=== PATIENT | female | born 1950 | race Caucasian/White ===

== ENCOUNTER → 2020-01-18 10:34 | Outpatient (CLI) | payer MEDICARE, SELFPAY ==
--- NOTE | ~2020-01-18 | MM_ITS ---
EXAMINATION: MM screening kiesha BI w tori HISTORY: Screening mammogram TECHNIQUE: Craniocaudal and mediolateral oblique 3-D tomosynthesis images were obtained and synthetic 2-D images were generated. CAD analysis was submitted and interpreted. COMPARISON: Comparison to multiple prior studies sequentially, with oldest reviewed study dated 06/03. BREAST PARENCHYMAL COMPOSITION: There are scattered areas of fibroglandular density. FINDINGS: There is no evidence of suspicious mass, calcification, or architectural distortion to sugg est malignancy in either breast. There has been no suspicious interval change. IMPRESSION: 1. No mammographic evidence of malignancy. 2. Recommend routine screening mammography in one year. BI-RADS Category 1: Negative Reviewed, dictated and finalized at location A. 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
== END ==
PROVIDERS: PCP Family Medicine; Visit Provider Student in an Organized Health Care Education/Training Program
DX: Z12.31 Encounter for screening mammogram for malignant neoplasm of breast (principal)
CPT/HCPCS: 77063; 77067

== ENCOUNTER → 2020-09-09 11:11 | Outpatient (CLI) | payer MEDICARE, SELFPAY ==
--- NOTE | ~2020-09-09 | XR_ITS ---
EXAMINATION: XR shoulder LT min 2V, XR humerus LT DATE: 09/09/2020 11:50 INDICATION: Left shoulder and upper arm pain TECHNIQUE: 1. AP internally and externally rotated, AP oblique externally rotated and transscapular Y views of t he left shoulder were obtained. 2. AP and lateral views of the left humerus were obtained on overlapping proximal and distal images. COMPARISON: None FINDINGS: Normal alignment. No fracture. Polyarticular osteoarthritis, moderate severity at the left acromiocl avicular and glenohumeral joints and mild at the left elbow. Visualized portions of the left lung are clear. Soft tissues are unremarkable. 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 Reviewed, dictated and finalized at location B. IMPRESSION: Polyarticular osteoarthritis, moderate at the left shoulder and mild at the lef t elbow.
== END ==
PROVIDERS: Visit Provider Nurse Practitioner
DX: M19.012 Primary osteoarthritis, left shoulder (principal); M19.022 Primary osteoarthritis, left elbow
CPT/HCPCS: 73030; 73060

== ENCOUNTER 2021-03-14 10:06 | Outpatient (CLI) | payer MEDICARE, SELFPAY ==
--- NOTE | ~2021-03-14 | CT_ITS ---
EXAMINATION: CT lung screening DATE: 03/14/2021 10:20 INDICATION: Screening for malignant neoplasm. TECHNIQUE: Computed tomography (CT) of the chest was performed without intravenous contrast. The dose -length product was 488.83 mGy-cm. Automated exposure control and iterative reconstruction technique were employed. COMPARISON: No prior studies for comparison. FINDINGS: There is atherosclerosis of the aorta and coronary arteries. Heart size is normal. No signi ficant pleural or pericardial effusion. There are calcified granulomas of the liver and spleen. There is a 10 mm fissural nodule of the minor fissure. There is focal consolidation (part solid nodule ) m easures no pneumothorax. No endobronchial lesions. 2.7 x 1.1 cm in the lingula, most likely infectiou s/inflammatory, although underlying neoplasm not excluded. There is moderate thoracic spondylosis. IMPRESSION: 1. Lung Rads 4A: [address] chest or pet/CT examination recommended. Reviewed, dictated and finalized at location B.
== END 2021-03-14 10:07 | disposition home or self-care (01) ==
LOC: ANHIMG 10:07
PROVIDERS: PCP Family Medicine; Visit Provider Family Medicine
DX: Z12.2 Encounter for screening for malignant neoplasm of respiratory organs (principal); Z87.891 Personal history of nicotine dependence
CPT/HCPCS: 71271

== ENCOUNTER → 2021-08-11 12:48 | Outpatient (CLI) | payer MEDICARE, SELFPAY ==
--- NOTE | ~2021-08-11 | XR_ITS ---
EXAMINATION: XR hand RT min 3V INDICATION: Right hand pain TECHNIQUE: Three views of the right hand are obtained. COMPARISON: None available FINDINGS: There is moderate polyarticular osteoarthritis of multiple interphalangeal joints and at th e second metacarpophalangeal joint. No fracture is identified. The soft tissues are unremarkable. IMPRESSION: 1. Polyarticular osteoarthritis. Reviewed, dictated and finalized at location A.
== END ==
PROVIDERS: PCP Family Medicine; Visit Provider Family Medicine
DX: M19.041 Primary osteoarthritis, right hand (principal)
CPT/HCPCS: 73130

== ENCOUNTER 2021-08-21 10:29 | Outpatient (CLI) | payer MEDICARE, SELFPAY ==
--- NOTE | ~2021-08-21 | CT_ITS ---
EXAMINATION: CT diagnostic chest wo con EXAM DATE: 08/21/2021 10:52 INDICATION: R91.1 - Solitary pulmonary nodule. TECHNIQUE: Spiral CT of the chest without contrast. Axial, coronal and sagittal images of the chest were reviewed. Coronal maximum intensity pixel images of chest reviewed. The dose-length product ( DLP) for this examination was 313.44 mGy-cm. The exposure was tailored according to patient size (au to mA exposure control), and iterative reconstruction (ASIR) was used as additional dose reduction te chnique. Comparison is made to prior examination from 03/14/2021. FINDINGS: No change in the right minor fissural nodule, postinfectious. No change in the linear righ t middle lobe and lingular atelectasis. No suspicious pulmonary nodules. There are no pleural or per icardial effusions. Mild emphysema. Tracheobronchial tree is patent. There is no mediastinal, hilar or axillary lymphadenopathy. There is no pneumothorax. 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 Probable coronary arter ial stents. There are splenic and liver granulomata. There is thoracic spondylosis without osteobla stic or osteolytic lesions identified. IMPRESSION: 1. Scattered postinfectious residua. Consider returning to screening low-dose chest CT at one year's time if patient still eligible. 2. Mild emphysema. Reviewed, dictated and finalized at location .
== END 2021-08-21 10:30 | disposition home or self-care (01) ==
LOC: ANHIMG 10:31
PROVIDERS: PCP Family Medicine; Visit Provider Family Medicine
DX: R91.1 Solitary pulmonary nodule (principal); J43.9 Emphysema, unspecified
CPT/HCPCS: 71250

== ENCOUNTER → 2021-09-09 11:39 | Outpatient (CLI) | payer MEDICARE, SELFPAY ==
--- NOTE | ~2021-09-09 | MMUS_ITS ---
EXAMINATION: MM diagnostic keisha BI w tori, US breast LT limited HISTORY: Left breast lump, upper inner quadrant TECHNIQUE: ML, MLO and craniocaudal 3-D tomosynthesis images of both breasts were performed and synth etic 2-D images were generated. CAD analysis was submitted and interpreted. High resolution targeted left breast ultrasound at area of complaint in the upper inner quadrant was performed. COMPARISON: 01/18/2020, 11/22/2018, 06/03/2017 bilateral digital screening mammogram examinations BREAST PARENCHYMAL COMPOSITION: The breasts are almost entirely fatty. FINDINGS: MAMMOGRAPHIC FINDINGS: At the area of clinical complaint in the upper inner quadrant there is an approximately 10 mm area of asymmetric branching linear reticular densities. No suspicious mass, architectural distortion, malignant calcification, skin thickening or retraction of either breast is noted otherwise. ULTRASOUND: At 10:00 at the upper inner quadrant at the area of clinical complaint of breast lump there is a subt le small focal irregular and angular anti-parallel hypoechoic area with posterior shadowing, correspo nding in location and configuration to the mammographic abnormality. This is suspicious for a very sm all malignancy. Ultrasound-guided biopsy is recommended. IMPRESSION: 1. Suspicious small angular branching density in the upper inner quadrant of the left breast, with so nographic shadowing, at the area of clinical complaint of breast lump. 2. Ultrasound-guided biopsy of left breast 10:00 lesion is recommended BI-RADS category 4, suspicious findings. Dr. Velasquez telephoned the report and ultrasound guided biopsy recommendation on 09/09/2021 at 1331 hour s to Reviewed, dictated and finalized at location A. IMPRESSION: 1. Suspicious small angular branching density in the upper inner quadrant of th e left breast, with sonographic shadowing, at the area of clinical complaint of breast lump. 2. Ultrasound-guided biopsy of left breast 10:00 lesion is recommended BI-RADS category 4, suspicious findings. Dr. Velasquez telephoned the report and ultrasound guided biopsy recommendation on at 1331 hours to
== END ==
PROVIDERS: PCP Family Medicine; Visit Provider Family Medicine
DX: N63.20 Unspecified lump in the left breast, unspecified quadrant (principal); R92.8 Other abnormal and inconclusive findings on diagnostic imaging of breast
CPT/HCPCS: 76642; 77062; 77066; G0279

== ENCOUNTER → 2022-01-20 10:26 | Outpatient (CLI) | payer MEDICARE, SELFPAY ==
--- NOTE | ~2022-01-20 | DEXA_ITS ---
Bone Density Report Name: MOY BALDWIN Age: 71 Sex: Female Ethnicity: White Date of : 1950 Indication: postmenopausal; screening for osteoporosis; height loss; asthma or emphysema; hysterectomy; Referring Provider: Diana Mendez Study: Bone densitometry was performed. Exam Date: January 20, 2022 Accession number: [id number] Bone Density: Region BMD T-score Z-score Classification AP Spine (L1-L4) 1.615 5.2 7.4 Normal Femoral Neck (Left) 0.638 -1.9 0.0 Osteopenia Total Hip (Left) 0.884 -0.5 1.1 Normal Femoral Neck (Right) 0.727 -1.1 0.8 Osteopenia Total Hip (Right) 0.880 -0.5 1.1 Normal Total Hip Mean 0.882 -0.5 1.1 Normal World Health Organization criteria for BMD impression classify patients as: Normal (T-score at or above -1.0), Osteopenia (T-score between -1.0 and -2.5), or Osteoporosis (T-score at or below -2.5). 10-year Fracture Risk(1): Major Osteoporotic Fracture 9.2% Hip Fracture 1.5% Reported Risk Factors: [place] (), Neck BMD=0.638, BMI=48.8 Input outside FRAX(R) limits. Adjusted to:Pjdyju=934 kg (1) FRAX(R) Version 3.08. Fracture probability calculated for an untreated patient. Fracture probability may be lower if the patient has received treatment. Previous Exams: Region Exam Age BMD T-score BMD Change BMD Change Date g/cm2 vs Baseline vs Previous AP Spine(L1-L4) 01/20/2022 71 1.615 5.2 -0.020 -0.020 11/22/2018 68 1.636 5.4 Total Hip(Left) 01/20/2022 71 0.884 -0.5 -0.061 -0.025 11/22/2018 68 0.909 -0.3 -0.035 -0.035 09/28/2002 52 0.944 0.0 Total Hip(Right) 01/20/2022 71 0.880 -0.5 -0.009 0.004 11/22/2018 68 0.876 -0.5 -0.013 -0.013 09/28/2002 52 0.889 -0.4 *Denotes significance at 95% confidence level, LSC for AP Spine = 0.022 g/cm2, LSC for Total Hip = 0.027 g/cm2 Clinical Information Provided by Patient: Has used the following medications: HRT (i.e. estrogen/hormone therapy), Vitamin D, Calcium Has the following medical conditions: Asthma or Emphysema, Hysterectomy Patient maximum height was 68 Menopause Age: 37 No regular weight bearing exercise Does not regularly consume dairy products Drinks caffeinated beverages Onset of menses at age 11 Number of children 3 Impression: The patient has low bone mass, based on the Left Femoral Neck T-score. The patient has an
== END ==
PROVIDERS: PCP Family Medicine; Visit Provider Family Medicine
DX: Z78.0 Asymptomatic menopausal state (principal); M85.852 Other specified disorders of bone density and structure, left thigh; M85.851 Other specified disorders of bone density and structure, right thigh
CPT/HCPCS: 77080

== ENCOUNTER 2022-08-10 11:59 | Outpatient (CLI) | payer MEDICARE, SELFPAY ==
[2022-08-10 19:07] LABS: Basophils Percent Auto 0.5 % (0.2-1.2); Eosinophils Absolute Auto 0.5 K/mm3 (0-0.3); Eosinophils Percent Auto 5.3 % (0-4.4); Hematocrit 38.8 % (37.0-47.0); Hemoglobin 12.1 g/dL (12.0-15.0); Immature Granulocyte Absolute 0.06 K/mm3 (0.00-0.031); Immature Granulocyte Percent A 0.7 % (0-0.5); Lymphocytes Absolute Auto 1.64 K/mm3 (0.9-3.2); Lymphocytes Percent Auto 18.6 % (18.3-44.2); Mean Corpuscular HGB Conc 31.2 g/dl (32-36); Mean Corpuscular Hemoglobin 29.3 pg (26-34); Mean Corpuscular Volume 93.9 fl (80-100); Mean Platelet Volume 10.4 fl (7.4-10.4); Monocytes Absolute Auto 0.7 K/mm3 (0.1-0.6); Monocytes Percent Auto 7.8 % (2.6-8.5); Neutrophils Absolute Auto 5.9 K/mm3 (1.3-6.7); Neutrophils Percent Auto 67.1 % (45.5-73.1); Platelet Count Result 214 k/mm3 (150-375); Red Blood Count 4.13 M/mm3 (4.2-5.4); White Blood Count 8.8 K/mm3 (4.5-10.0)
[2022-08-10 19:45] LABS: Alanine Aminotransferase 16 U/L (6-35); Alkaline Phosphatase 103 U/L (38-126); Anion Gap 6 mmol/L (8-16); Aspartate Amino Transferase 27 U/L (14-36); Bilirubin,Total 0.4 mg/dL (0.2-1.3); Blood Urea Nitrogen 18 mg/dL (7-17); Calcium 8.8 mg/dL (8.4-10.2); Carbon Dioxide 31 mmol/L (22-30); Chloride 101 mmol/L (98-107); Cholesterol 170 mg/dL (0-200); Estimated Glomerular Filt Rate 44; Glucose 95 mg/dL (65-110); HDL Direct 44 mg/dL; Potassium 4.3 mmol/L (3.4-5.0); Sodium 138 mmol/L (137-145); Triglycerides 230 mg/dL (<150)
[2022-08-10 19:56] LABS: LDL Cholesterol Direct 89 mg/dL
[2022-08-10 22:06] LABS: Vitamin D 25 Hydroxy 46.9 ng/mL
[2022-08-10 22:52] LABS: Free T4 Free Thyroxine Reflex 1.12 ng/dL (0.78-2.19)
== END 2022-08-10 12:00 | disposition home or self-care (01) ==
LOC: ANHGOSHLAB 12:01
PROVIDERS: PCP Family Medicine; Visit Provider Family Medicine
DX: E53.8 Deficiency of other specified B group vitamins (principal); E78.5 Hyperlipidemia, unspecified; I10 Essential (primary) hypertension; F33.9 Major depressive disorder, recurrent, unspecified; E55.9 Vitamin D deficiency, unspecified
CPT/HCPCS: 36415; 80053; 80061; 82306; 82607; 84439; 84443; 84480; 85025

== ENCOUNTER → 2022-08-10 12:17 | Outpatient (CLI) | payer MEDICARE, SELFPAY ==
--- NOTE | ~2022-08-10 | XR_ITS ---
EXAMINATION: XR knee LT min 4V DATE: 08/10/2022 12:45 INDICATION: Left knee pain TECHNIQUE: Four views of the left knee were obtained. COMPARISON: None. FINDINGS: Alignment is normal. No fracture or osteochondral lesion. There is advanced tricompartmenta l osteoarthritis. No joint effusion/synovitis. Soft tissues are unremarkable. IMPRESSION: 1. Tricompartmental osteoarthritis without acute osseous abnormality. Reviewed, dictated and finalized at location A.
== END ==
PROVIDERS: PCP Family Medicine; Visit Provider Family Medicine
DX: M17.12 Unilateral primary osteoarthritis, left knee (principal)
CPT/HCPCS: 73564

== ENCOUNTER 2022-08-24 13:04 | Outpatient (CLI) | payer MEDICARE, SELFPAY ==
--- NOTE | ~2022-08-24 | CT_ITS ---
EXAMINATION: CT lung screening DATE: 08/24/2022 13:23 INDICATION: Personal history of nicotine dependence, prior smoker with 35 pack year history TECHNIQUE: Computed tomography (CT) of the chest was performed without intravenous contrast. The dose -length product (DLP) was 366.44 mGy-cm. Automated exposure control and iterative reconstruction tech [employer] were employed. COMPARISON: 08/21/2021, 03/14/2021 FINDINGS: There is scarring and atelectasis of the lingula. No suspicious pulmonary nodules are ident ified. There is a stable 4 mm nodule of the right lower lobe on image 82. A fissural lymph node is no elder in association with the minor fissure. The lungs are free of acute opacities. No pleural effusion or pneumothorax. No pathologically enlarged thoracic lymph nodes are identified. The heart size is n ormal. Subendocardial fat deposition in the cardiac apex is consistent with prior myocardial infarcti on. Punctate calcifications in an otherwise normal spleen likely represent healed granulomatous disea se. The gallbladder is surgically absent. There is severe thoracic spondylosis. IMPRESSION: 1. Lung-RADS category 2: Benign appearance or behavior. Continue annual screening with noncontrast lo w-dose chest CT in 12 months. Reviewed, dictated and finalized at location A. IMPRESSION: 1. Lung-RADS category 2: Benign appearance or behavior. Continue annual screeni ng with noncontrast low-dose chest CT in 12 months.
== END 2022-08-24 13:05 | disposition home or self-care (01) ==
PROVIDERS: PCP Family Medicine; Visit Provider Nurse Practitioner Family
DX: Z12.2 Encounter for screening for malignant neoplasm of respiratory organs (principal); Z87.891 Personal history of nicotine dependence
CPT/HCPCS: 71271